=== PATIENT | female | born 1990 | race African-American/Black ===

== ENCOUNTER 2020-03-24 10:23 | Emergency (ER) | payer SELFPAY ==
[2020-03-24 10:59] LABS: #Eosinphils 0.2 thou/uL (0.0-0.7); #Lymphocytes 1.2 thou/uL (1.20-3.40); #Monocytes 0.4 thou/uL (0.11-0.59); %Basophils 0.4 % (0.0-1.0); %Eosinophils 2.6 % (0.0-10.0); %Lymphocytes 21.4 % (21.0-51.0); %Monocytes 6.6 % (0.0-10.0); %Neutrophils 69.1 % (42.0-75.0); Hemoglobin 13.9 g/dL (12.0-16.0); Mean Corpuscular HGB CONC 33.8 g/dL (32.0-36.0); Mean Corpuscular Hemoglobin 31.7 pg (27.0-31.0); Mean Corpuscular Volume 93.9 fL (78.0-98.0); Mean Platelet Volume 8.6 fL (7.4-10.4); Platelet Count 322 thou/uL (130-400); RBC Distribution Width 10.9 % (11.5-14.5); Red Blood Cell (RBC) Count 4.37 mill/uL (4.20-5.40); White Blood Cell (WBC) Count 5.7 thou/uL (4.8-10.8)
[2020-03-24 13:08] LABS: Bacteria/HPF None Seen HPF (None Seen); Squamous Epithelial 0-3 HPF (0-3); WBC/HPF 0-3 HPF (0-3)
[2020-03-24 13:30] LABS: Bilirubin Negative (Negative); Blood, Urine Negative (Negative); Glucose, Urine (Dipstick) Negative (Negative); Ketone, Urine Negative (Negative); Leukocyte Negative (Negative); Nitrite Negative (Negative); Protein, Urine (Dipstick) Negative (Neg-Trace); Specific Gravity, Urine 1.025 (1.005-1.030); Urobilinogen 0.2 mg/dL (Less than 2); pH, Urine 7.5 (5.0-9.0)
[2020-03-24 13:36] LABS: Clarity Clear (Clear)
--- NOTE | 2020-03-24 14:24 | ULT ---
PELVIC ULTRASOUND: Transabdominal and endovaginal ultrasound of pelvis performed. INDICATION: Pelvic pain and spotting. FINDINGS: Uterus has an unremarkable appearance. Echogenicity in the endometrial cavity consistent with IUD. Endometrial stripe was normal measured at 3 mm. Right ovary is unremarkable. Color Doppler with spectral analysis demonstrates normal blood flow. Left ovary shows 2 dominant follicles, each measuring 1.5 to 2 cm. Color Doppler and spectral analys is demonstrates flow to the left ovary. No free fluid. IMPRESSION: 1. There are left ovarian follicular cysts as described. 2. Evidence of Intrauterine device in the endometrial cavity within the fundus. 3. Pelvic ultrasound otherwise unremarkable. POS: AGW
== END 2020-03-24 13:40 | disposition home or self-care (01) ==
LOC: ERS 10:23
DX: N93.8 Other specified abnormal uterine and vaginal bleeding (principal); Z79.01 Long term (current) use of anticoagulants; Z79.899 Other long term (current) drug therapy
CPT/HCPCS: 36415; 76856; 81003; 84702; 85025; 99284